=== PATIENT | female | born 1975 | race American Indian/Alaskan Native ===

== ENCOUNTER 2018-10-28 09:34 | Emergency (ER) | payer OTHER ==
[2018-10-28 09:38] VITALS: O2SAT 98
[2018-10-28 09:44] VITALS: BMI 23.1
[2018-10-28] MEDS ORDERED: Naproxen 500 MG TAB PO ONE ×2 (10:07→10:13)
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
--- NOTE | 2018-10-28 10:54 | RAD ---
Date of service: 10/28/2018 PROCEDURE: Cervical Spine Radiographs. HISTORY: Pain. COMPARISON: None available. FINDINGS: Study is slightly limited due to partial obscuration of the odontoid by overlying occiput in the open-mouth projection BONES: No evidence of acute displaced or compression fractures nor retropulsed fragments identified within limitation of this exam DISC SPACES: Minor anterior marginal osteophyte formation seen at the C5-C6 to a lesser degree C6-C7 and less of the C4-C5 levels. SOFT TISSUES: Normal. No prevertebral soft tissue swelling. OTHER FINDINGS: None. IMPRESSION: Slightly limited exam as described. No acute fractures seen within limitation of the study. Very minor early degenerative spondylosis.
[2018-10-28 11:27] VITALS: BP 108/63; PULSE 77; RESP 18; TEMP 98.5
== END 2018-10-28 11:24 | disposition home or self-care (01) ==
LOC: H.ER 09:34
DX: S16.1XXA Strain of muscle, fascia and tendon at neck level, initial encounter (principal); V89.2XXA Person injured in unspecified motor-vehicle accident, traffic, initial encounter